=== PATIENT | female | born 1990 | race Caucasian/White ===

== ENCOUNTER 2023-04-15 12:52 | Emergency (ER) | payer BC, SELFPAY ==
[2023-04-15 13:08] VITALS: BP 130/56; PULSE 92; RESP 18; TEMP 36.7; O2SAT 100
--- NOTE | 2023-04-15 14:06 | ED.LOWEXIN ---
HPI - Extremity Injury (Lower) General Chief Complaint: Extremity Injury, Lower Stated Complaint: Right Knee Injury Time Seen by Provider: 04/15/23 13:58 Source: patient and RN notes reviewed Mode of arrival: ambulatory (With crutches) Limitations: no limitations History of Present Illness HPI Narrative: Patient presents today reporting she injured her right knee 5 [place] the [place] She was on a swing when she flipped backwards, landing on the ground but twisting her right knee in the chains of a swing. Two days later she went to the ER at [facility] where an x-ray was done, and she was subsequently told that she had no fracture. She was then placed in a knee immobilizer and given crutches. She was told to follow-up with orthopedics. She was given and note to excuse her from work for 3 days. She is here today requesting a note to excuse her for the next 2 days so she can follow-up with orthopedics on Wednesday. She currently rates her pain 6/10. She has been taking prescribed [facility] with little relief. She is unable to drive due to her injured leg being the right leg. Related Data Allergies Allergy/AdvReac Type Severity Reaction Status Date / Time No Known Allergies Allergy Unverified 07/27/17 18:48 Review of Systems Review of Systems: CONSTITUTIONAL: Denies body aches, fever, chills, or sweats. EYES: Denies visual changes, redness, or discharge. ENT: Denies rhinorrhea, congestion, sore throat, or otalgia. CARDIOVASCULAR: Denies chest pain, palpitations, or edema. RESPIRATORY: Denies cough or dyspnea. GASTROINTESTINAL: Denies abdominal pain, nausea, vomiting, or diarrhea. GENITOURINARY: Denies dysuria or hematuria. SKIN: Denies rash, itching, or wounds. MUSCULOSKELETAL: Denies back pain, or myalgia.+ right knee injury NEUROLOGIC: Denies headache, numbness, tingling, or weakness. PSYCH: Denies depression or anxiety. PMFSH Comments At time of signature, I have reviewed and agree with nursing past medical, surgical, social and family history unless otherwise noted. Please see nursing chart for further information. There is no relevant family history pertinent to the presenting complaint Exam Narrative: GENERAL: Well-appearing, well-nourished, and in no acute distress. HEAD: Normocephalic, atraumatic. EYES: EOMI. No redness or drainage. Conjunctivae normal. ENT: Mucous membranes pink and moist. NECK: Normal AROM. CHEST: No respiratory distress. EXTREMITIES: Right knee: No edema noted. Tenderness to the posterior knee and lateral joint line. Healing ecchymosis to the lateral knee. Distal sensation intact. Capillary refill normal. Pedal pulse normal. Pain with any range of motion.. SKIN: Warm, dry, no rash. Capillary refill normal. Normal skin turgor. NEURO: No focal deficits. Alert and oriented x3. Gait steady. PSYCH: Normal affect. No signs of depression or anxiety. Course Course Level of Care: Express Care Visit Vital Signs Vital signs: Vital Signs Temperature 98.1 F 04/15/23 13:08 Pulse Rate 92 04/15/23 13:08 Respiratory Rate 18 04/15/23 13:08 Blood Pressure 130/56 L 04/15/23 13:08 Pulse Oximetry 100 04/15/23 13:08 Oxygen Delivery Room Air 04/15/23 13:08 Temperature 98.1 F 04/15/23 13:08 Pulse Rate 92 04/15/23 13:08 Respiratory Rate 18 04/15/23 13:08 Blood Pressure 130/56 L 04/15/23 13:08 Pulse Oximetry 100 04/15/23 13:08 Oxygen Delivery Room Air 04/15/23 13:08 Reviewed MDM - Extremity Injury (Lower) MDM Narrative Medical decision making narrative: Work excuse will be given for the next 2 days. Instructed patient to ask for a work excuse on Wednesday when she goes to Orthopedics. Patient agrees with plan. Anticipatory guidance given. Differential Diagnosis Differential diagnosis: Likely other (Ligamentous injury, meniscus injury, knee strain) Critical Care Time Critical Care Time Critical Care Time: No Discharge Plan
== END 2023-04-15 14:15 | disposition home or self-care (01) ==
PROVIDERS: Emergency Provider Nurse Practitioner
DX: S89.91XA Unspecified injury of right lower leg, initial encounter (principal); W09.1XXA Fall from playground swing, initial encounter; Y92.830 Public park as the place of occurrence of the external cause
CPT/HCPCS: 99202; G0463

== ENCOUNTER 2023-07-12 12:55 | Emergency (ER) | payer BC, SELFPAY ==
[2023-07-12 13:25] VITALS: BP 114/64; PULSE 104; RESP 16; TEMP 37.7; O2SAT 99
--- NOTE | 2023-07-12 13:33 | ED.URI ---
HPI - URI/Sore Throat General Chief Complaint: Upper Respiratory Infection Stated Complaint: fever/throat/cough History of Present Illness HPI Narrative: 32-year-old female presented for complaint of sore throat, cough, runny nose over the past day. States she has had a fever of 99 for 2 days. Endorses possible exposure to strep throat. She denies shortness breath, wheezing, nausea, vomiting, diarrhea or lethargy. Took ibuprofen prior to arrival. Related Data Allergies Allergy/AdvReac Type Severity Reaction Status Date / Time No Known Allergies Allergy Unverified 07/27/17 18:48 Review of Systems Review of Systems: CONSTITUTIONAL: Denies body aches, fever, chills, or sweats. EYES: Denies visual changes, redness, or discharge. ENT: reports sore throat, rhinorrhea, congestion CARDIOVASCULAR: Denies chest pain, palpitations, or edema. RESPIRATORY: Denies dyspnea. GASTROINTESTINAL: Denies abdominal pain, nausea, vomiting, or diarrhea. SKIN: Denies rash, itching, or wounds. MUSCULOSKELETAL: Denies back pain, joint pain, or myalgia. NEUROLOGIC: Denies headache Exam Narrative: GENERAL: well-appearing, no acute distress. EYES: conjunctivae clear ENT: Mucous membranes moist. TM pearly holcomb with normal light reflex bilaterally; no tragal tenderness. Oropharynx erythematous without lesions. Tonsils enlarged 2+ and without exudate. No drooling, no hoarseness, no trismus, uvula midline. No tripod positioning, hot potato voice, or soft palate swelling. NECK: Supple. No lymphadenopathy CHEST: Clear to auscultation, breath sounds equal. No respiratory distress, speaks in full sentences. HEART: Regular rate and rhythm. No murmur heard. SKIN: Warm, dry, no rash. NEURO: Alert and oriented x3. Course Course Emergency Course: Patient is aware of diagnosis, understands and agrees to treatment plan. Anticipatory guidance given. Patient agrees to follow-up as directed and is aware of reasons to seek care at the emergency department. Portions of this record may have been created with voice recognition software Level of Care: Express Care Visit Vital Signs Vital signs: Vital Signs Temperature 99.9 F H 07/12/23 13:25 Pulse Rate 104 H 07/12/23 13:25 Respiratory Rate 16 07/12/23 13:25 Blood Pressure 114/64 07/12/23 13:25 Pulse Oximetry 99 07/12/23 13:25 Oxygen Delivery Room Air 07/12/23 13:25 Temperature 99.9 F H 07/12/23 13:25 Pulse Rate 104 H 07/12/23 13:25 Respiratory Rate 16 07/12/23 13:25 Blood Pressure 114/64 07/12/23 13:25 Pulse Oximetry 99 07/12/23 13:25 Oxygen Delivery Room Air 07/12/23 13:25 MDM - URI/Sore Throat MDM Narrative Medical decision making narrative: positive strep result reviewed with pt. Advise supportive treatments. Patient is appropriate for outpatient treatment and follow-up. Differential Diagnosis Differential diagnosis: Likely upper respiratory infection, viral infection and pharyngitis Discharge Plan Discharge Clinical Impression: Strep pharyngitis Patient Disposition: Home, Self-Care Condition: Stable Instructions: Antibiotic Form, Strep Throat (ED) Additional Instructions: - Take the antibiotic as directed. Fever and sore throat typically resolve within one to three days. Most patients can return to work after 12 to 24 hours of antibiotic therapy, provided you are fever free and otherwise well. -Eat and drink things that are easy to swallow, like soft foods, cool liquids, tea with honey, or popsicles . -Salt water gargles and/or may use topical anesthetic ( Chloraseptic spray) or lozenges to relieve dryness or throat pain -Alternate Tylenol and ibuprofen as needed for pain and fever as directed. -Frequent hand washing or hand interior horticulturist is one of the best ways to prevent spread of infection. Throw away the toothbrush after 24hours of antibiotic. -Follow up with primary care provider in 2-3 days if condition is not im
== END 2023-07-12 13:58 | disposition home or self-care (01) ==
PROVIDERS: Emergency Provider Nurse Practitioner Family
DX: J02.0 Streptococcal pharyngitis (principal)
CPT/HCPCS: 87880; 99213; G0463